=== PATIENT | female | born 1940 | race Caucasian/White ===

== ENCOUNTER 2018-03-19 13:08 | Inpatient (IN) | payer MEDICARE ==
[2018-03-19] MEDS ORDERED: TDAP Vaccine 0.5 mL Syr IM ONE (13:27)
--- NOTE | 2018-03-19 13:39 | ED PDOC ---
Arrival/HPI - General Chief Complaint: Trauma Time Seen by Provider: 03/19/18 13:13 Historian: Patient - History of Present Illness Narrative History of Present Illness (Text): 03/19/18 13:40 A 77 year old female, whose past medical history includes Hypertension, diabetes and A fib (on Coumadin), presents to the emergency department for ? syncopal episode. 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 Patient reports she felt fine before the fall. Notes she fell to the ground, hitting her face. Patient has laceration to lips and right eye swelling. Reports loss of consciousness. Denies any recent falls. Denies any syncopal episodes in the past. Reports normal blood sugar levels. Patient denies any chest pain, dizziness, Shortness of breath, hip pain or any other complaints at this time. PMD: Dr. Hwang Kinder Teacher: Dr. Pandey 03/19/18 15:26 Symptom Onset: Sudden Symptom Course: Unchanged Activities at Onset: Rest Context: Other (Kinder Teacher office) Past Medical History - Provider Review Nursing Documentation Reviewed: Yes - Cardiac Hx Cardiac Arrhythmia: Yes (AFIB) Hx Hypertension: Yes - Psychiatric Hx Depression: No Hx Emotional Abuse: No Hx Physical Abuse: No Hx Substance Use: No - Surgical History Hx Orthopedic Surgery: Yes (KNEE) - Suicidal Assessment Feels Threatened In Home Enviroment: No Family/Social History - Physician Review Nursing Documentation Reviewed: Yes Family/Social History: No Known Family HX Smoking Status: Never Smoked Hx Alcohol Use: No Hx Substance Use: No Allergies/Home Meds Allergies/Adverse Reactions: Allergies Penicillins Allergy (Verified 03/19/18 13:15) RASH Home Medications: Home Meds Medication Instructions Recorded Confirmed Amiodarone Hydrochloride 200 mg PO BID 11/08/13 11/08/13 [Amiodarone HCl] Atenolol 12.5 mg PO DAILY 11/08/13 11/08/13 Cholecalciferol [D-3] 2,000 iu PO DAILY 11/08/13 11/08/13 Glimepiride 6 mg PO QAM 11/08/13 11/08/13 Insulin Lispro Mix 75/25 [humalog 20 units SC QPM 11/08/13 11/08/13 Mix 75/25 75 U/Ml-25 U/Ml 10 Ml] Metformin Hydrochloride [Metformin] 500 mg PO BID 11/08/13 11/08/13 Nifedipine [Nifediac cc] 60 mg PO DAILY 11/08/13 11/08/13 Simvastatin 20 mg PO DAILY 11/08/13 11/08/13 Valsartan [Diovan] 160 mg PO DAILY 11/08/13 11/08/13 Warfarin Sodium 7.5 mg PO DAILY 11/08/13 11/08/13 Review of Systems - Physician Review All systems were reviewed & negative as marked: Yes - Review of Systems Eyes: Other (right eye swelling) ENT: Other (laceration to lip) Respiratory: absent: SOB Cardiovascular: Syncope. absent: Chest Pain Musculoskeletal: absent: Other (hip pain) Neurological: absent: Dizziness Physical Exam Vital Signs Reviewed: Yes Vital Signs Temp Pulse Resp BP Pulse Ox 03/19/18 15:08 86 18 148/64 98 03/19/18 13:12 98.2 F 92 H 18 150/58 L 98 Temperature: Afebrile Blood Pressure: Hypertensive Pulse: Regular Respiratory Rate: Normal Appearance: Positive for: Well-Appearing, Non-Toxic, Comfortable Pain Distress: None Mental Status: Positive for: Alert and Oriented X 3 - Systems Exam Head: Present: Normocephalic, Abrasion (abrasion to top lip), Laceration (1 cm laceration to inside top lip), Other (swelling to right eye) Pupils: Present: PERRL Extroacular Muscles: Present: EOMI Conjunctiva: Present: Normal Mouth: Present: Moist Mucous Membranes Neck: Present: Normal Range of Motion Respiratory/Chest: Present: Clear to Auscultation, Good Air Exchange. No: Respiratory Distress, Accessory Muscle Use Cardiovascular: Present: Irregular Rhythm Abdomen: No: Tenderness, Distention, Peritoneal Signs Back: Present: Normal Inspection Upper Extremity: Present: Normal Inspection. No: Cyanosis, Edema Lower Extremity: Present: Normal Inspection. No: Edema Neurological: Present: GCS=15, CN II-XII Intact, Speech Normal Skin: Present: Warm, Dry, Normal Color. No: Rashes Psychiatric: Present: Alert, Oriented x 3, Normal Insight, Normal Concentration Medical Decision Making ED Course and Treatment: 03/19/18 13:36 Impression: A 77 year old female with laceration to lip and right eye swelling s/p syncopal episode. Plan: -- CT head -- CT maxillofacial -- labs -- chest xray -- EKG -- Tylenol -- Boostrix vaccine -- Reassess and disposition Prior Visits: Notes and results from previous visits were reviewed. Patient last reported to the emergency department on 11/08/13 for evaluation of lower abdominal pain, nausea and vomiting. Progress Notes: 03/19/18 14:11 CT HEAD WITHOUT CONTRAST Creator : Luis Recinos MD FINDINGS: HEMORRHAGE: No intracranial hemorrhage. BRAIN: No mass effect or edema. Chronic microvascular changes are seen. Moderate atrophy VENTRICLES: Unremarkable. No hydrocephalus. CALVARIUM: Unremarkable. PARANASAL SINUSES: Unremarkable as visualized. No significant inflammatory changes. MASTOID AIR CELLS: Unremarkable as visualized. No inflammatory changes. OTHER FINDINGS: There is soft tissue hemorrhage over the right superior orbit. There is no associated fracture. IMPRESSION: No acute intracranial findings 03/19/18 14:15 CT MAXILLOFACIAL BONES WITHOUT CONTRAST Creator : Luis Recinos MD FINDINGS: NASAL BONES: Unremarkable. ORBITS: There is a subcutaneous hemorrhage over the right superior orbit. There is no intraorbital hemorrhage. The globes are intact PARANASAL SINUSES/ MASTOIDS: Clear. MAXILLA: Unremarkable. MANDIBLE/ TEMPOROMANDIBULAR JOINTS: Unremarkable. SKULL BASE: Unremarkable. TEMPORAL BONES: Middle ears and mastoid grossly unremarkable. IMPRESSION: No evidence of fracture 03/19/18 14:28 EKG shows A fib at [address] changes. 03/19/18 14:25 chest xray- Creator : Pranav Cunningham MD FINDINGS: LUNGS: No active pulmonary disease. PLEURA: No significant pleural effusion identified. No pneumothorax apparent. CARDIOVASCULAR: No radiographic findings to suggest acute or significant cardiovascular disease. OSSEOUS STRUCTURES: No significant abnormalities. VISUALIZED UPPER ABDOMEN: Normal. IMPRESSION: No active disease. No significant interval change compared to the prior examination(s). 03/19/18 15:[address] Hwang's office and will be transferred to [facility] for syncope - Lab Interpretations Lab Results: 03/19/18 14:35 03/19/18 14:35 Lab Results 03/19/18 14:35: Sodium 147, Potassium 4.0, Chloride 103, Carbon Dioxide 28, Anion Gap 20, BUN 15, Creatinine 0.8, Est GFR ( Amer) > 60, Est GFR (Non- Af Amer) > 60, Random Glucose 150 H, Calcium 10.4, Total Bilirubin 0.8, AST 27, ALT 30, Alkaline Phosphatase 80, Total Creatine Kinase 127, Troponin I < 0.01, Total Protein 8.7 H, Albumin 5.0 H, Globulin 3.7, Albumin/Globulin Ratio 1.4 03/19/18 14:35: PT 25.0 H, INR 2.16 H, APTT 39.9 H 03/19/18 14:35: WBC 8.4 D, RBC 4.94, Hgb 14.0, Hct 42.8, MCV 86.6, MCH 28.3, MCHC 32.7, RDW 14.6 H, Plt Count 289, MPV 10.8, Gran % 74.7 H, Lymph % (Auto) 19.0 L, [place] % (Auto) 4.7, Eos % (Auto) 1.2 L, Baso % (Auto) 0.4, Gran # 6.26, Lymph # (Auto) 1.6, [place] # (Auto) 0.4, Eos # (Auto) 0.1, Baso # (Auto) 0.03 I have reviewed the lab results: Yes - RAD Interpretation Radiology Orders: 03/19/18 13:17 HEAD W/O CONTRAST [CT] Stat 03/19/18 13:18 CHEST TWO VIEWS (PA/LAT) [RAD] Stat 03/19/18 13:26 MAXILLOFACIAL W/O CONTRAST [CT] Stat - EKG Interpretation Interpreted by ED Physician: Yes Type: 12 lead EKG - Medication Orders Current Medication Orders: Discontinued Medications Acetaminophen (Tylenol 325mg Tab) 650 mg PO STAT STA Stop: 03/19/18 13:28 Last Admin: 03/19/18 14:32 Dose: 650 mg MAR Pain/Vitals Document 03/19/18 14:32 HI (Rec: 03/19/18 14:56 HI [id number]) Pain Reassessment Is This A Pain ReAssessment? No Sleep Is patient sleeping during reassessment? No Presence of Pain Presence of Pain Yes Location Pain Location Body Pace Analyst Tetanus/Reduced Diphtheria/Acell Pertussis (Boostrix Vaccine Inj) 0.5 ml IM .ONCE ONE Stop: 03/19/18 13:28 Last Admin: 03/19/18 14:32 Dose: 0.5 ml Immunization Registry Document 03/19/18 14:32 HI (Rec: 03/19/18 14:55 HI [id number]) Immunization Registry Consent Date 10/08/17 - Scribe Statement The provider has reviewed the documentation as recorded by the Scribe Joya Encios All medical record entries made by the Scribe were at my direction and personally dictated by me. I have reviewed the chart and agree that the record accurately reflects my personal performance of the history, physical exam, medical decision making, and the department course for this patient. I have also personally directed, reviewed, and agree with the discharge instructions and disposition. Disposition/Present on Arrival - Present on Arrival Any Indicators Present on Arrival: No History of DVT/PE: No History of Uncontrolled Diabetes: No Urinary Catheter: No History of Decub. Ulcer: No History Surgical Site Infection Following: None - Disposition Have Diagnosis and Disposition been Completed?: Yes Diagnosis: Syncope, Atrial fibrillation Disposition: HOSPITALIZED Disposition Time: 15:27 Patient Plan: Observation Condition: FAIR Discharge Instructions (ExitCare): Syncope (ED) Referrals: [employer] Brea Guzman, [Non-Staff] - Follow up with primary Forms: Librato (Ukrainian)
--- NOTE | 2018-03-19 14:10 | CT ---
PROCEDURE: CT HEAD WITHOUT CONTRAST. HISTORY: head trauma,on coumadin COMPARISON: None available. TECHNIQUE: Axial computed tomography images were obtained through the head/brain without intravenous contrast. Radiation dose: Total exam DLP = 875 mGy-cm. This CT exam was performed using one or more of the following dose reduction techniques: Automated exposure control, adjustment of the mA and/or kV according to patient size, and/or use of iterative reconstruction technique. FINDINGS: HEMORRHAGE: No intracranial hemorrhage. BRAIN: No mass effect or edema. Chronic microvascular changes are seen. Moderate atrophy VENTRICLES: Unremarkable. No hydrocephalus. CALVARIUM: Unremarkable. PARANASAL SINUSES: Unremarkable as visualized. No significant inflammatory changes. MASTOID AIR CELLS: Unremarkable as visualized. No inflammatory changes. OTHER FINDINGS: There is soft tissue hemorrhage over the right superior orbit. There is no associated fracture. IMPRESSION: No acute intracranial findings
--- NOTE | 2018-03-19 14:13 | CT ---
PROCEDURE: CT MAXILLOFACIAL BONES WITHOUT CONTRAST HISTORY: swelling to R eye after fall, on coumadin COMPARISON: None TECHNIQUE: Contiguous axial CT images of the maxillofacial bones were obtained. Coronal and sagittal reformats were generated. Radiation dose: Total exam DLP = 687 mGy-cm. This CT exam was performed using one or more of the following dose reduction techniques: Automated exposure control, adjustment of the mA and/or kV according to patient size, and/or use of iterative reconstruction technique. FINDINGS: NASAL BONES: Unremarkable. ORBITS: There is a subcutaneous hemorrhage over the right superior orbit. There is no intraorbital hemorrhage. The globes are intact PARANASAL SINUSES/ MASTOIDS: Clear. MAXILLA: Unremarkable. MANDIBLE/ TEMPOROMANDIBULAR JOINTS: Unremarkable. SKULL BASE: Unremarkable. TEMPORAL BONES: Middle ears and mastoid grossly unremarkable. OTHER FINDINGS: None. IMPRESSION: No evidence of fracture
--- NOTE | 2018-03-19 14:21 | RAD ---
HISTORY: fall, on coumadin, ?syncope COMPARISON: 01/10/2015. TECHNIQUE: Chest PA and lateral FINDINGS: LUNGS: No active pulmonary disease. PLEURA: No significant pleural effusion identified. No pneumothorax apparent. CARDIOVASCULAR: No radiographic findings to suggest acute or significant cardiovascular disease. OSSEOUS STRUCTURES: No significant abnormalities. VISUALIZED UPPER ABDOMEN: Normal. OTHER FINDINGS: None. IMPRESSION: No active disease. No significant interval change compared to the prior examination(s).
[2018-03-19 14:44] LABS: BASO # 0.03 K/mm3 (0.0-2.0); BASO % 0.4 % (0.0-3.0); EOS # 0.1 (0.0-0.7); EOS % 1.2 % (1.5-5.0); GRAN # 6.26 (1.4-6.5); GRAN % 74.7 % (50.0-68.0); LYMPH # 1.6 (1.2-3.4); MEAN CELL VOLUME 86.6 fl (80.0-105.0); MEAN CORPUSCULAR HEMOGLOBIN 28.3 pg (25.0-35.0); MEAN CORPUSCULAR HGB CONC 32.7 g/dl (31.0-37.0); MEAN PLATELET VOLUME 10.8 fl (7.0-11.0); MONO # 0.4 (0.1-0.6); MONO % 4.7 % (1.0-6.0); RBC 4.94 10^6/uL (3.5-6.1); RED CELL DISTRIBUTION WIDTH 14.6 % (11.5-14.5); WHITE BLOOD COUNT 8.4 10^3/ul (4.5-11.0)
[2018-03-19 14:57] LABS: INR 2.16 (0.93-1.08); PARTIAL THROMBOPLASTIN TIME 39.9 Seconds (25.1-36.5)
[2018-03-19 15:05] LABS: GFR AFRICAN-AMERICAN > 60; GFR NON-AFRICAN AMERICAN > 60
[2018-03-19 15:08] LABS: ALB/GLOB RATIO 1.4 (1.1-1.8); ALT/SGPT 30 U/L (7-56); AST/SGOT 27 U/L (14-36); BLOOD UREA NITROGEN 15 mg/dL (7-21); CALCIUM 10.4 mg/dL (8.4-10.5)
[2018-03-19 15:16] LABS: TROPONIN I < 0.01 ng/mL
--- NOTE | 2018-03-19 15:44 | CARD ---
APPROVED REPORT EKG Measurement Heart [id number] <Conclusion> Atrial fibrillation Nonspecific T wave abnormality
[2018-03-19] MEDS ORDERED: Lidocaine 1% Inj (20ml) IJ STA (16:54)
[2018-03-19 17:06] LABS: HDL CHOLESTEROL 54 mg/dL (29-60)
--- NOTE | 2018-03-19 17:12 | CP.PCM.HP ---
<SujeySabrina - Last Filed: 03/19/18 16:51> History of Present Illness - History of Present Illness History of Present Illness: Sabrina Rm, PGy1, H&P for Dr Suellen Morrissey: CC: mechanical fall 77 year old female, with PMH HTN, DM, afib (on Coumadin), presents s/p mechanical fall at Cardiology office. Pt states that she was in her usual state of health this morning. She went to see her Mosaic Layer (Dr Pandey). At the end of visit, she may have tripped on the floor, she fell down and hit her right head. Denies LOC, dizziness, cp, sob, palpitations, irregular heartbeat, seizure like activity, urinary/bowel incontinence, tongue biting, focal deficits , blurry vision. Pt reports that she had mild confusion lasting few seconds from the fall. However, she was later alert, oriented x3. Denies hitting her hips or pain elsewhere in body. Further denies cough, abdominal pain, leg swelling, urinary symptoms. Pt reports that her left knee has been bothering her for past few weeks, she had a right knee replacement few years ago. States that she likely would have to get left knee replaced as well. 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 In ED, INR 2.16, trop neg x1. EKG shows afib, no ST/T wave abnormalities. CT head negative for ICH, maxillofacial CT neg for acute fracture. 12 point ROS obtained and negative, except as per HPI. PMD: Dr. Hwang Mosaic Layer: Dr. Pandey PMH: HTN, DM, Afib (on coumadin) PSH: right knee replacement (2007) All: PCN - rash, itching. Vitamin B complex - hypotension? FH: HTN, DM SH: lives with , has 3 daughters that live nearby. Denies etoh, smoking, illicit drug use. Present on Admission - Present on Admission Any Indicators Present on Admission: No History of DVT/PE: No History of Uncontrolled Diabetes: No Urinary Catheter: No Decubitus Ulcer Present: No Review of Systems - Review of Systems All systems: reviewed and no additional remarkable complaints except Review of Systems: as per HPI Past Patient History - Past Social History Smoking Status: Never Smoked - CARDIAC Hx Cardia Arrhythmia: Yes (AFIB) Hx Hypertension: Yes - PSYCHIATRIC Hx Depression: No Hx Emotional Abuse: No Hx Physical Abuse: No Hx Substance Use: No - SURGICAL HISTORY Hx Orthopedic Surgery: Yes (KNEE) Meds Allergies/Adverse Reactions: Allergies Allergy/AdvReac Type Severity Reaction Status Date / Time Penicillins Allergy RASH Verified 03/19/18 13:15 Physical Exam - Constitutional Appears: No Acute Distress - Head Exam Head Exam: NORMOCEPHALIC Additional comments: + right eye swelling noted, but eye movements intact - Eye Exam Eye Exam: EOMI, PERRL. absent: Conjunctival injection, Nystagmus, Scleral icterus Pupil Exam: NORMAL ACCOMODATION, PERRL. absent: Fixed, Irregular, Unequal - ENT Exam ENT Exam: Mucous Membranes Moist - Neck Exam Neck exam: Positive for: Full Rom - Respiratory Exam Respiratory Exam: Clear to Auscultation Bilateral, NORMAL BREATHING PATTERN. absent: Accessory Muscle Use, Rhonchi, Wheezes, Stridor - Cardiovascular Exam Cardiovascular Exam: Irregular Rhythm - GI/Abdominal Exam GI & Abdominal Exam: Normal Bowel Sounds, Soft. absent: Distended, Guarding, Mass, Organomegaly, Rebound, Rigid, Tenderness - Extremities Exam Extremities exam: Positive for: normal inspection. Negative for: calf tenderness, pedal edema - Back Exam Back exam: NORMAL INSPECTION - Neurological Exam Neurological exam: Alert, Oriented x3 - Psychiatric Exam Psychiatric exam: Normal Affect, Normal Mood - Skin Skin Exam: Dry, Normal Color, Warm Results - Vital Signs Recent Vital Signs: Last Vital Signs Temp 98.2 F 03/19/18 13:12 Pulse 86 03/19/18 15:08 Resp 18 03/19/18 15:08 BP 148/64 03/19/18 15:08 Pulse Ox 98 03/19/18 15:08 - Labs Result Diagrams: 03/19/18 14:35 03/19/18 14:35 Assessment & Plan - Assessment and Plan (Free Text) Assessment: 77 year old female with PMH afib on Coumadin, DM, HTN, osteoarthritis, presents s/p mechanical fall, admitted for concern for syncope: Fall: likely mechanical vs less likely syncope 2/2 arrhythmias vs orthostatic vs heart failure vs carotid stenosis vs seizure/cva vs infectious etiology - tele monitor - Orthostatic VS - Carotid doppler - Echo - Neuro checks - Fall precautions - CT head neg for acute bleed/changes and maxillofacial CT negative for acute fracture - CXR neg for infiltrate or cardiomegaly - EKG shows A fib at [address] changes. - F/u UA - Cardio consulted. F/u recs HX of Afib: - EKG shows A fib at [address] changes. - C/w home atenolol and coumadin - Daily INR. Maintain INR 2-3. Hx of HTN: - C/w home med Losartan, nifedipine. Holding parameters in place. - Monitor Hx of DM: - ISS - BG ACHS PPX: pepcid, Scds Diet: carb consistent (heart healthy diet) Case seen and discussed with Dr Patric Morrissey. Sabrina Rm, PGY1 - Date & Time Date: 03/19/18 Time: 17:13 <Suellen Morrissey - Last Filed: 03/21/18 16:41> Results - Vital Signs Recent Vital Signs: Last Vital Signs Temp 98.5 F 03/20/18 18:00 Pulse 90 03/20/18 18:00 Resp 20 03/20/18 18:00 BP 139/81 03/20/18 18:00 Pulse Ox 98 03/20/18 06:00 - Labs Result Diagrams: 03/20/18 05:30 03/20/18 05:30 Labs: Laboratory Results - last 24 hr 03/20/18 16:10 POC Glucose (mg/dL) 130 H Attending/Attestation - Attestation I have personally seen and examined this patient.: Yes I have fully participated in the care of the patient.: Yes I have reviewed all pertinent clinical information: Yes Notes (Text): I have seen and examined the patient at bedside. Agree with the above note. Will order workup for syncope.
[2018-03-19 17:17] LABS: LDL CHOLESTEROL 97 mg/dL (0-129)
--- NOTE | 2018-03-19 17:31 | PCM.PROC ---
Procedures Attestation:: I certify that I have explained the specified Operation(s) or Procedure(s), risks, benefits and reasonable alternatives to the Patient and/or other person responsible. The opportunity was given to ask questions and all questions answered - Laceration lidocaine 1% simple, single layer linear right lip 5-0 vicryl local infiltration simple, interrupted Site: lip (upper; inside of mouth) Side (if applicable): right Size (cm): 2 Description: linear Depth: simple, single layer Anesthesia used: lidocaine 1% Anesthesia technique: local infiltration Amount (mLs): 1 Pre-repair: irrigated extensively Skin layer closed with: vicryl Size: 5-0 Number of sutures: 3 Technique: simple, interrupted
[2018-03-19] MEDS: Insulin Reg-MEDIUM-Coverage SC SCH (21:34)
[2018-03-19 22:02] VITALS: BMI 27.4
[2018-03-19 22:50] LABS: PH,URINE 6.5 (4.7-8.0); URINE BILIRUBIN NEGATIVE (NEGATIVE); URINE BLOOD SMALL (NEGATIVE); URINE GLUCOSE (UA) 500 mg/dL (NEGATIVE); URINE LEUKOCYTE ESTERASE MODERATE Leu/uL (NEGATIVE); URINE PROTEIN NEGATIVE mg/dL (<30 mg/dL); URINE UROBILINOGEN 0.2 E.U./dL (<1 E.U./dL)
[2018-03-19 22:54] LABS: URINE APPEARANCE SL CLOUDY (CLEAR); URINE COLOR YELLOW (YELLOW)
[2018-03-19 23:07] LABS: URINE BACTERIA MANY (NEG); URINE EPITHELIAL CELLS 0 - 2 /hpf (0-5); URINE RBC 0 - 2 /hpf (0-2); URINE WBC 20 - 25 /hpf (0-6)
[2018-03-20 06:07] VITALS: O2SAT 98
[2018-03-20 06:37] LABS: BASO # 0.03 K/mm3 (0.0-2.0); BASO % 0.4 % (0.0-3.0); EOS # 0.1 (0.0-0.7); EOS % 1.9 % (1.5-5.0); GRAN # 4.51 (1.4-6.5); GRAN % 61.7 % (50.0-68.0); LYMPH # 1.9 (1.2-3.4); LYMPH % 25.3 % (22.0-35.0); MEAN CELL VOLUME 85.9 fl (80.0-105.0); MEAN CORPUSCULAR HEMOGLOBIN 27.6 pg (25.0-35.0); MEAN CORPUSCULAR HGB CONC 32.2 g/dl (31.0-37.0); MONO # 0.8 (0.1-0.6); MONO % 10.7 % (1.0-6.0); RBC 4.27 10^6/uL (3.5-6.1); RED CELL DISTRIBUTION WIDTH 14.8 % (11.5-14.5); WHITE BLOOD COUNT 7.3 10^3/ul (4.5-11.0)
[2018-03-20 06:49] LABS: HEMOGLOBIN 11.8 g/dL (12.0-16.0)
[2018-03-20 06:53] LABS: INR 2.62 (0.93-1.08); PARTIAL THROMBOPLASTIN TIME 36.6 Seconds (25.1-36.5); PROTHROMBIN TIME 30.7 SECONDS (9.4-12.5)
--- NOTE | 2018-03-20 06:59 | CP.PCM.PN ---
<DaleChad - Last Filed: 03/20/18 13:31> Subjective - Date & Time of Evaluation Date of Evaluation: 03/20/18 Time of Evaluation: 07:35 - Subjective Subjective: Medicine Note for Dr. Morrissey Patient seen and examined at bedside. No acute event overnight. Patient complains of mild pain over R orbit and upper lip from fall. Patient tolerating diet. Neurology to see patient today. Denies lightheadedness/dizziness, vision changes, syncope, vertigo, chest pain, palpitations, dysuria. Objective - Vital Signs/Intake and Output Vital Signs (last 24 hours): Temp Pulse Resp BP Pulse Ox 97.4 F L 86 20 139/79 98 03/20/18 06:00 03/20/18 06:00 03/20/18 06:00 03/20/18 06:00 03/20/18 06:00 Intake and Output: 03/19/18 03/20/18 18:59 06:59 Intake Total 540 Output Total 500 Balance 40 - Medications Medications: Current Medications Atenolol (Tenormin) 50 mg PO DAILY [facility] Atenolol (Tenormin) 37.5 mg PO 2000 [facility] Ciprofloxacin (Cipro) 500 mg PO Q12 [facility] Famotidine (Pepcid) 20 mg PO 1000,2200 [facility] Last Admin: 03/19/18 21:34 Dose: Not Given Insulin Human Regular (Humulin R Med) 0 units SC ACHS [facility] PRN Reason: Protocol Last Admin: 03/19/18 21:34 Dose: Not Given Losartan Potassium (Cozaar) 100 mg PO DAILY [facility] Nifedipine (Procardia Xl) 60 mg PO DAILY [facility] Warfarin Sodium (Coumadin) 5 mg PO 1800 [facility] PRN Reason: Protocol - Labs Labs: 03/20/18 05:30 PT 30.7 SECONDS (9.4-12.5) H 03/20/18 05:30 INR 2.62 (0.93-1.08) H 03/20/18 05:30 APTT 36.6 Seconds (25.1-36.5) H 03/20/18 05:30 - Constitutional Appears: No Acute Distress - Head Exam Head Exam: NORMOCEPHALIC Additional comments: edema and ecchymosis over R orbit upper lip edema - Eye Exam Eye Exam: EOMI Pupil Exam: PERRL - ENT Exam ENT Exam: Mucous Membranes Moist - Neck Exam Neck Exam: Normal Inspection - Respiratory Exam Respiratory Exam: Clear to Ausculation Bilateral, NORMAL BREATHING PATTERN - Cardiovascular Exam Cardiovascular Exam: Irregular Rhythm (regular rate), +S1, +S2 - GI/Abdominal Exam GI & Abdominal Exam: Soft, Normal Bowel Sounds. absent: Tenderness - Extremities Exam Extremities Exam: Normal Capillary Refill. absent: Calf Tenderness - Neurological Exam Neurological Exam: Alert, Awake, CN II-XII Intact, Oriented x3 - Psychiatric Exam Psychiatric exam: Normal Affect, Normal Mood - Skin Skin Exam: Dry, Intact, Warm Assessment and Plan - Assessment and Plan (Free Text) Assessment: 77 F with PMH afib on Coumadin, DM, HTN, osteoarthritis, presents s/p mechanical fall, admitted for possible syncope. 1. s/p Fall likely mechanical vs less likely syncope Orthostatic VS negative f/u Carotid doppler report Neuro checks Fall precautions CT head negative maxillofacial CT negative for acute fracture CXR negative EKG shows A fib at 89 BPM Cardio consulted, help appreciated Neuro consulted, help appreciated 2. Atrial Fibrillation EKG shows A fib at 89 BPM Continue home meds atenolol and coumadin INR 2.6 3. HTN Contine home med Losartan and nifedipine Monitor BP Orthostats negative 4. DM ISS Accuchecks ACHS 5. Prophylactic Measures pepcid Scds On Coumadin for afib Mod carb consistent, heart healthy diet Case discussed with Dr Yuni Hunter PGY1 <Suellen Morrissey - Last Filed: 03/21/18 15:20> Objective - Vital Signs/Intake and Output Vital Signs (last 24 hours): Temp Pulse Resp BP Pulse Ox 98.5 F 90 20 139/81 98 03/20/18 18:00 03/20/18 18:00 03/20/18 18:00 03/20/18 18:00 03/20/18 06:00 - Labs Labs: 03/20/18 05:30 03/20/18 05:30 PT 30.7 SECONDS (9.4-12.5) H 03/20/18 05:30 INR 2.62 (0.93-1.08) H 03/20/18 05:30 APTT 36.6 Seconds (25.1-36.5) H 03/20/18 05:30 Attending/Attestation - Attestation I have personally seen and examined this patient.: Yes I have fully participated in the care of the patient.: Yes I have reviewed all pertinent clinical information, including history, physical exam and plan: Yes Notes (Text): I have seen and examined the patient at bedside. Agree with the above note. Neurology consult pending.
[2018-03-20 07:12] LABS: ALB/GLOB RATIO 1.2 (1.1-1.8); ALBUMIN 3.7 g/dL (3.0-4.8); ALT/SGPT 23 U/L (7-56); AST/SGOT 20 U/L (14-36); BLOOD UREA NITROGEN 14 mg/dL (7-21); CALCIUM 9.3 mg/dL (8.4-10.5); GFR AFRICAN-AMERICAN > 60; GFR NON-AFRICAN AMERICAN > 60
[2018-03-20] MEDS: Insulin Reg-MEDIUM-Coverage SC SCH ×3 (07:38→16:30)
[2018-03-20] MEDS ORDERED: NIFEdipine 60 mg ER Tab PO SCH (10:00)
--- NOTE | 2018-03-20 15:56 | US ---
PROCEDURE: Bilateral carotid artery duplex ultrasound HISTORY: Carotid stenosis PHYSICIAN(S): Abram Joyner MD. TECHNIQUE: Duplex sonography and color-flow Doppler were used to evaluate the carotid bifurcations and limited segments of the vertebral arteries bilaterally. FINDINGS: There is mild smooth focal heterogeneous echogenic plaque noted at the carotid bifurcations bilaterally. The peak systolic velocity in the proximal right internal carotid artery is 85 cm/sec. This corresponds to a 20 to 39% proximal right ICA stenosis. Normal systolic velocities are noted in the proximal right external carotid artery. There is antegrade flow in the right vertebral artery. The peak systolic velocity in the proximal left internal carotid artery is 70 cm/sec. This corresponds to a 20 to 39% proximal left ICA stenosis. Normal systolic velocities are noted in the proximal left external carotid artery. There is antegrade flow in the left vertebral artery. IMPRESSION: 1. Bilateral 20-39% proximal ICA stenoses. 2. Antegrade flow in both vertebral arteries.
[2018-03-20 18:29] VITALS: BP 139/81; PULSE 90; RESP 20; TEMP 98.5
--- NOTE | 2018-03-20 18:29 | CON ---
DATE: 03/20/2018 REASON FOR CONSULTATION: Fall with head trauma. HISTORY OF PRESENT ILLNESS: This is a 77-year-old woman well known to me who came to our office yesterday for an INR, while walking to the room in the [place], she fell, hitting her face and head on the floor. She did not recall what happened, but in retrospect believes that she tripped over loose sandals that she was wearing. She had a purse and other things in her arms which prevented her from protecting her head during the fall. She was bleeding from her lip and had an ecchymosis around her right eye. She was disoriented with evidence of concussion. She was transferred to the emergency room and subsequently admitted to telemetry. This morning, her mental status has returned to normal and she feels well. There is no chest pain, shortness of breath, orthopnea, PND, prior syncope, palpitation, edema, claudication. Prior to the fall, she was feeling well. There is no fever, chills, cough, sputum production, or hemoptysis. There is no abdominal pain, nausea, vomiting, diarrhea, constipation, or melena. PAST MEDICAL HISTORY: Notable for chronic AFib. She is on Coumadin. There is a history of hypertension and diabetes, but no rheumatic fever, myocardial infarction, stroke, TIA, or gout. MEDICATIONS: At the time of admission, include Xanax, Pravachol, losartan, atenolol, vitamin D, glimepiride, insulin, metformin, nifedipine, and warfarin. ALLERGIES: SHE NOTES AN ALLERGY TO PENICILLIN. FAMILY HISTORY: Noncontributory. SOCIAL HISTORY: She is a retired nurse. She lives at home with her . She is ambulatory. She does not smoke cigarettes. She does not drink alcohol. REVIEW OF SYSTEMS: A 10-point review of systems is otherwise unremarkable except as noted above. PHYSICAL EXAMINATION: GENERAL: She is a well-developed woman, sitting on her bed on telemetry, in no acute distress. VITAL SIGNS: Notable for atrial fibrillation with moderate ventricular rates, afebrile, blood pressure 139/79, respirations are 18-20, O2 sat 98%-100% on room air. Her orthostatic vital signs were unremarkable. HEENT: Reveals facial trauma on the right side with swelling, ecchymosis. Her lip has been sutured on the inside. Mucous membranes are moist. Conjunctivae are pink. NECK: Supple. LUNGS: Lung [place] are clear throughout. HEART: Reveals an irregular rhythm. Normal first and second heart sounds. ABDOMEN: Soft. Bowel sounds are present. No mass, organomegaly, tenderness, rebound, or guarding. NEUROLOGIC: She is awake, alert, and oriented. She knew me. She knew the exact date and place. Yesterday, after the fall, she was disoriented as to place and time. PSYCHIATRIC: Normal. SKIN: Warm and dry. No rash or cellulitis. Ecchymosis around the right eye noted. LABORATORY AND IMAGING: CT scan of the head revealed no acute intracranial findings. A chest x-ray reveals no active disease. EKG demonstrates atrial fibrillation, nonspecific ST wave changes, no change from her prior EKG. A maxillofacial CT without contrast reveals no evidence of fracture. White count normal, platelet count normal, hemoglobin of 11.8, hematocrit 36.7. PT 30, INR 2.62, PTT 36.6. Electrolytes, BUN, creatine, blood sugar, calcium, LFTs, CK, troponin were all unremarkable. Total cholesterol 191, triglycerides 164, LDL 97, HDL 54, TSH is normal. Urinalysis is noted. 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 Her neurologic status has normalized this morning. Her lip was sutured. She got a tetanus injection. I will resume her usual medications. I will hold warfarin today. An echocardiogram is ordered. We will check her postural vital signs. A carotid ultrasound is ordered. She should have a neuro. consultation. She can ambulate. I will plan discharge her later today with outpatient followup. We will repeat her next INR in 2 weeks. She will continue her usual warfarin dosage starting tomorrow. She will keep us informed of any symptoms. She will avoid wearing loose sandals in the future. Bay Pandey MD JOSE
--- NOTE | 2018-03-20 19:11 | CP.PCM.DIS ---
<Chad Hunter - Last Filed: 03/21/18 13:27> Provider - Provider Date of Admission: 03/19/18 15:27 Attending physician: Suellen Morrissey MD Primary care physician: Hi Hwang MD Consults: Cardio: Katherin Neuro: Rebekah Time Spent in preparation of Discharge (in minutes): 40 Diagnosis - Discharge Diagnosis (1) Fall Status: Acute (2) UTI (urinary tract infection) Status: Acute (3) Atrial fibrillation Status: Acute Hospital Course - Lab Results Lab Results: Most Recent Lab Values WBC 7.3 10^3/ul (4.5-11.0) 03/20/18 05:30 RBC 4.27 10^6/uL (3.5-6.1) 03/20/18 05:30 Hgb 11.8 g/dL (12.0-16.0) L D 03/20/18 05:30 Hct 36.7 % (36.0-48.0) 03/20/18 05:30 MCV 85.9 fl (80.0-105.0) 03/20/18 05:30 MCH 27.6 pg (25.0-35.0) 03/20/18 05:30 MCHC 32.2 g/dl (31.0-37.0) 03/20/18 05:30 RDW 14.8 % (11.5-14.5) H 03/20/18 05:30 Plt Count 278 10^3/uL (120.0-450.0) 03/20/18 05:30 MPV 11.0 fl (7.0-11.0) 03/20/18 05:30 Gran % 61.7 % (50.0-68.0) 03/20/18 05:30 Lymph % (Auto) 25.3 % (22.0-35.0) 03/20/18 05:30 [place] % (Auto) 10.7 % (1.0-6.0) H 03/20/18 05:30 Eos % (Auto) 1.9 % (1.5-5.0) 03/20/18 05:30 Baso % (Auto) 0.4 % (0.0-3.0) 03/20/18 05:30 Gran # 4.51 (1.4-6.5) 03/20/18 05:30 Lymph # (Auto) 1.9 (1.2-3.4) 03/20/18 05:30 [place] # (Auto) 0.8 (0.1-0.6) H 03/20/18 05:30 Eos # (Auto) 0.1 (0.0-0.7) 03/20/18 05:30 Baso # (Auto) 0.03 K/mm3 (0.0-2.0) 03/20/18 05:30 PT 30.7 SECONDS (9.4-12.5) H 03/20/18 05:30 INR 2.62 (0.93-1.08) H 03/20/18 05:30 APTT 36.6 Seconds (25.1-36.5) H 03/20/18 05:30 Sodium 144 mmol/L (132-148) 03/20/18 05:30 Potassium 3.6 mmol/L (3.6-5.0) 03/20/18 05:30 Chloride 104 mmol/L (98-107) 03/20/18 05:30 Carbon Dioxide 29 mmol/L (21-33) 03/20/18 05:30 Anion Gap 16 (10-20) 03/20/18 05:30 BUN 14 mg/dL (7-21) 03/20/18 05:30 Creatinine 0.6 mg/dl (0.7-1.2) L 03/20/18 05:30 Est GFR ( Amer) > 60 03/20/18 05:30 Est GFR (Non-Af Amer) > 60 03/20/18 05:30 POC Glucose (mg/dL) 159 mg/dL (65-110) H 03/20/18 11:33 Random Glucose 143 mg/dL (70-110) H 03/20/18 05:30 Hemoglobin A1c 6.5 % (4.2-6.5) 03/20/18 09:30 Calcium 9.3 mg/dL (8.4-10.5) 03/20/18 05:30 Phosphorus 3.5 mg/dL (2.5-4.5) 03/20/18 05:30 Magnesium 1.7 mg/dL (1.7-2.2) 03/20/18 05:30 Total Bilirubin 0.9 mg/dL (0.2-1.3) 03/20/18 05:30 AST 20 U/L (14-36) 03/20/18 05:30 ALT 23 U/L (7-56) 03/20/18 05:30 Alkaline Phosphatase 65 U/L (38-126) 03/20/18 05:30 Total Creatine Kinase 127 U/L (35-230) 03/19/18 14:35 Troponin I < 0.01 ng/mL 03/19/18 14:35 Total Protein 6.8 g/dL (5.8-8.3) 03/20/18 05:30 Albumin 3.7 g/dL (3.0-4.8) 03/20/18 05:30 Globulin 3.1 gm/dL 03/20/18 05:30 Albumin/Globulin Ratio 1.2 (1.1-1.8) 03/20/18 05:30 Triglycerides 164 mg/dL (35-160) H 03/19/18 14:35 Cholesterol 191 mg/dL (130-200) 03/19/18 14:35 LDL Cholesterol Direct 97 mg/dL (0-129) 03/19/18 14:35 HDL Cholesterol 54 mg/dL (29-60) 03/19/18 14:35 TSH 3rd Generation 2.97 mIU/mL (0.46-4.68) 03/19/18 14:35 Urine Color Yellow (YELLOW) 03/19/18 22:45 Urine Appearance Sl cloudy (CLEAR) 03/19/18 22:45 Urine pH 6.5 (4.7-8.0) 03/19/18 22:45 Ur Specific [place] 1.010 (1.005-1.035) 03/19/18 22:45 Urine Protein Negative mg/dL (<30 mg/dL) 03/19/18 22:45 Urine Glucose (UA) 500 mg/dL (NEGATIVE) H 03/19/18 22:45 Urine Ketones Negative mg/dL (NEGATIVE) 03/19/18 22:45 Urine Blood Small (NEGATIVE) H 03/19/18 22:45 Urine Nitrate Positive (NEGATIVE) H 03/19/18 22:45 Urine Bilirubin Negative (NEGATIVE) 03/19/18 22:45 Urine Urobilinogen 0.2 E.U./dL (<1 E.U./dL) 03/19/18 22:45 Ur Leukocyte Esterase Moderate [place]/uL (NEGATIVE) H 03/19/18 22:45 Urine RBC 0 - 2 /hpf (0-2) 03/19/18 22:45 Urine WBC 20 - 25 /hpf (0-6) 03/19/18 22:45 Ur Epithelial Cells 0 - 2 /hpf (0-5) 03/19/18 22:45 Urine Bacteria Many (NEG) 03/19/18 22:45 - Hospital Course Hospital Course: HPI: 77 F with PMH HTN, DM, afib (on Coumadin), presents s/p mechanical fall at Cardiology office. Pt states that she was in her usual state of health this morning. She went to see her Manufacturing Clerk (Dr Pandey). At the end of visit, she may have tripped on the floor, she fell down and hit her right head. Denies LOC , dizziness, cp, sob, palpitations, irregular heartbeat, seizure like activity, urinary/bowel incontinence, tongue biting, focal deficits, blurry vision. Pt reports that she had mild confusion lasting few seconds from the fall. However, she was later alert, oriented x3. Denies hitting her hips or pain elsewhere in body. Further denies cough, abdominal pain, leg swelling, urinary symptoms. Pt reports that her left knee has been bothering her for past few weeks, she had a right knee replacement few years ago. States that she likely would have to get left knee replaced as well. 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 Hospital course: In ED, INR 2.16, troponin was negative. EKG showed afib, no ST/ T wave abnormalities. CT head negative, and maxillofacial CT was negative for acute fracture. Three suture were placed in upper lip to close laceration. She was found to have ecchymosis of R orbit. No evidence of bleeding. Patient was admitted to telemetry. Cardio and Neuro were consulted. Carotid US revealed bilateral stenosis 20-39%. Echo demonstrated normal EF at 58%. She was cleared by Cardio and Neuro. The fall was ruled as purely mechanical. UA had shown uncomplicated UTI so Cipro was provided on discharge. Patient was feeling fine and work up was negative for any syncopal, neurogenic, or cardiogenic cause of fall so she was deemed stable for discharge. Patient was instructed to follow up with PMD and Cardio as outpatient. She was to resume home meds as prescribed. (this is a summary of the hospital course. Please refer to EMR for more details. ) Discharge Exam - Head Exam Head Exam: NORMOCEPHALIC - Eye Exam Eye Exam: EOMI Pupil Exam: PERRL - ENT Exam ENT Exam: Mucous Membranes Moist - Neck Exam Neck exam: Normal Inspection - Respiratory Exam Respiratory Exam: Clear to PA & Lateral, NORMAL BREATHING PATTERN - Cardiovascular Exam Cardiovascular Exam: Irregular Rhythm (regular rate), +S1, +S2 - GI/Abdominal Exam GI & Abdominal Exam: Normal Bowel Sounds, Soft. absent: Tenderness - Extremities Exam Extremities exam: normal capillary refill, pedal pulses present - Neurological Exam Neurological exam: Alert, CN II-XII Intact, Oriented x3 - Psychiatric Exam Psychiatric exam: Normal Affect, Normal Mood - Skin Skin Exam: Dry, Intact, Warm Discharge Plan - Discharge Medications Prescriptions: Ciprofloxacin/Ciprofloxa HCl [Ciprofloxacin ER 500 mg Tablet] 500 mg PO DAILY # 3 tbmp.24hr - Follow Up Plan Condition: GOOD Disposition: HOME/ ROUTINE Instructions: Syncope (Fainting), Preventing Falls, Bleeding Precautions, Urinary Tract Infection in Women (DC), Urinary Tract Infection in Women (GEN), Syncope (DC), Syncope (GEN), Dysuria (GEN) Additional Instructions: 1) Follow up with Dr. Pandey and PMD as directed. 2) Please take any medications as directed, unless otherwise indicated 3) Please resume home medications as directed by candy cooker helper and neurologist, unless otherwise indicated. 4) Please return to ED if you develop any new or worsening symptoms. Referrals: Hi Hwang MD [Primary Care Provider] - <Suellen Morrissey - Last Filed: 03/21/18 15:23> Provider - Provider Date of Admission: 03/19/18 15:27 Attending physician: Suellen Morrissey MD Primary care physician: Hi Hwang MD Hospital Course - Lab Results Lab Results: Most Recent Lab Values WBC 7.3 10^3/ul (4.5-11.0) 03/20/18 05:30 RBC 4.27 10^6/uL (3.5-6.1) 03/20/18 05:30 Hgb 11.8 g/dL (12.0-16.0) L D 03/20/18 05:30 Hct 36.7 % (36.0-48.0) 03/20/18 05:30 MCV 85.9 fl (80.0-105.0) 03/20/18 05:30 MCH 27.6 pg (25.0-35.0) 03/20/18 05:30 MCHC 32.2 g/dl (31.0-37.0) 03/20/18 05:30 RDW 14.8 % (11.5-14.5) H 03/20/18 05:30 Plt Count 278 10^3/uL (120.0-450.0) 03/20/18 05:30 MPV 11.0 fl (7.0-11.0) 03/20/18 05:30 Gran % 61.7 % (50.0-68.0) 03/20/18 05:30 Lymph % (Auto) 25.3 % (22.0-35.0) 03/20/18 05:30 [place] % (Auto) 10.7 % (1.0-6.0) H 03/20/18 05:30 Eos % (Auto) 1.9 % (1.5-5.0) 03/20/18 05:30 Baso % (Auto) 0.4 % (0.0-3.0) 03/20/18 05:30 Gran # 4.51 (1.4-6.5) 03/20/18 05:30 Lymph # (Auto) 1.9 (1.2-3.4) 03/20/18 05:30 [place] # (Auto) 0.8 (0.1-0.6) H 03/20/18 05:30 Eos # (Auto) 0.1 (0.0-0.7) 03/20/18 05:30 Baso # (Auto) 0.03 K/mm3 (0.0-2.0) 03/20/18 05:30 PT 30.7 SECONDS (9.4-12.5) H 03/20/18 05:30 INR 2.62 (0.93-1.08) H 03/20/18 05:30 APTT 36.6 Seconds (25.1-36.5) H 03/20/18 05:30 Sodium 144 mmol/L (132-148) 03/20/18 05:30 Potassium 3.6 mmol/L (3.6-5.0) 03/20/18 05:30 Chloride 104 mmol/L (98-107) 03/20/18 05:30 Carbon Dioxide 29 mmol/L (21-33) 03/20/18 05:30 Anion Gap 16 (10-20) 03/20/18 05:30 BUN 14 mg/dL (7-21) 03/20/18 05:30 Creatinine 0.6 mg/dl (0.7-1.2) L 03/20/18 05:30 Est GFR ( Amer) > 60 03/20/18 05:30 Est GFR (Non-Af Amer) > 60 03/20/18 05:30 POC Glucose (mg/dL) 130 mg/dL (65-110) H 03/20/18 16:10 Random Glucose 143 mg/dL (70-110) H 03/20/18 05:30 Hemoglobin A1c 6.5 % (4.2-6.5) 03/20/18 09:30 Calcium 9.3 mg/dL (8.4-10.5) 03/20/18 05:30 Phosphorus 3.5 mg/dL (2.5-4.5) 03/20/18 05:30 Magnesium 1.7 mg/dL (1.7-2.2) 03/20/18 05:30 Total Bilirubin 0.9 mg/dL (0.2-1.3) 03/20/18 05:30 AST 20 U/L (14-36) 03/20/18 05:30 ALT 23 U/L (7-56) 03/20/18 05:30 Alkaline Phosphatase 65 U/L (38-126) 03/20/18 05:30 Total Creatine Kinase 127 U/L (35-230) 03/19/18 14:35 Troponin I < 0.01 ng/mL 03/19/18 14:35 Total Protein 6.8 g/dL (5.8-8.3) 03/20/18 05:30 Albumin 3.7 g/dL (3.0-4.8) 03/20/18 05:30 Globulin 3.1 gm/dL 03/20/18 05:30 Albumin/Globulin Ratio 1.2 (1.1-1.8) 03/20/18 05:30 Triglycerides 164 mg/dL (35-160) H 03/19/18 14:35 Cholesterol 191 mg/dL (130-200) 03/19/18 14:35 LDL Cholesterol Direct 97 mg/dL (0-129) 03/19/18 14:35 HDL Cholesterol 54 mg/dL (29-60) 03/19/18 14:35 TSH 3rd Generation 2.97 mIU/mL (0.46-4.68) 03/19/18 14:35 Urine Color Yellow (YELLOW) 03/19/18 22:45 Urine Appearance Sl cloudy (CLEAR) 03/19/18 22:45 Urine pH 6.5 (4.7-8.0) 03/19/18 22:45 Ur Specific [place] 1.010 (1.005-1.035) 03/19/18 22:45 Urine Protein Negative mg/dL (<30 mg/dL) 03/19/18 22:45 Urine Glucose (UA) 500 mg/dL (NEGATIVE) H 03/19/18 22:45 Urine Ketones Negative mg/dL (NEGATIVE) 03/19/18 22:45 Urine Blood Small (NEGATIVE) H 03/19/18 22:45 Urine Nitrate Positive (NEGATIVE) H 03/19/18 22:45 Urine Bilirubin Negative (NEGATIVE) 03/19/18 22:45 Urine Urobilinogen 0.2 E.U./dL (<1 E.U./dL) 03/19/18 22:45 Ur Leukocyte Esterase Moderate [place]/uL (NEGATIVE) H 03/19/18 22:45 Urine RBC 0 - 2 /hpf (0-2) 03/19/18 22:45 Urine WBC 20 - 25 /hpf (0-6) 03/19/18 22:45 Ur Epithelial Cells 0 - 2 /hpf (0-5) 03/19/18 22:45 Urine Bacteria Many (NEG) 03/19/18 22:45 Attending/Attestation - Attestation I have personally seen and examined this patient.: Yes I have fully participated in the care of the patient.: Yes I have reviewed all pertinent clinical information, including history, physical exam and plan: Yes Notes (Text): I have seen and examined the patient at bedside. Follow up with Dr Chance within 3-5 days.
--- NOTE | 2018-03-20 22:29 | CON ---
DATE: 03/20/2018 HISTORY OF PRESENT ILLNESS: This is a 77-year-old female with past medical history of chronic AFib, hypertension, diabetes. Patient fell while walking in the room, hit her face on the floor. Did not lose consciousness. Patient was brought to hospital. CAT scan of the head was done, which was reported negative. Patient had bruised right periorbital area and no loss of consciousness and no fever. No nausea or vomiting. PAST MEDICAL HISTORY: As above. MEDICATIONS: Xanax, Pravachol, losartan, atenolol, glimepiride, metformin, nifedipine, and warfarin. Patient's Coumadin is on hold. SOCIAL HISTORY: She is a retired nurse. REVIEW OF SYSTEMS: A 10-point review of systems was negative. PHYSICAL EXAMINATION: HEENT: Normocephalic, bruised right periorbital region. No tongue bite. No urinary incontinence. NEUROLOGIC: Alert, awake, oriented x3. No aphasia. Cranial nerves II through XII were tested. Pupils reactive. EOM intact. Visual field full. No facial asymmetry. Tongue midline. Motor examination: Moves all the extremities equally. Tone normal. Deep tendon reflexes are 1+. Both plantars are downgoing. Cerebellar, gait deferred. IMPRESSION: Head trauma secondary to fall. CAT scan of the head, no bleed or infarct. Her PT is 30. We can hold the warfarin and continue present management. We will follow up. Devin Welch MD
--- NOTE | 2018-03-21 09:17 | CARD ---
APPROVED REPORT EXAM: Two-dimensional and M-mode echocardiogram with Doppler and color Doppler. Other Information Quality : GoodRhythm : INDICATION Syncope 2D DIMENSIONS Left Atrium (2D)3.3 (1.6-4.0cm)IVSd1.0 (0.7-1.1cm) LVDd4.4 (3.9-5.9cm)LVOT Diameter1.8 (1.8-2.4cm) PWd1.0 (0.7-1.1cm)LVDs3.1 (2.5-4.0cm) FS (%) 30.4 %LVEF (%)58.0 (>50%) M-Mode DIMENSIONS Aortic Root2.50 (2.2-3.7cm)Aortic Cusp Exc.0.70 (1.5-2.0cm) Aortic Valve AoV Peak [id number]/s Mitral Valve E/A ratio0.0 TDI E/Lateral E'0.0E/Medial E'0.0 Tricuspid Valve TR Peak [id number] [id number] Peak Gr.17mmHg [id number] LEFT VENTRICLE The left ventricle is normal size. There is normal left ventricular wall thickness. The left ventricular function is normal. The left ventricular ejection fraction is within the normal range. There is normal LV segmental wall motion. RIGHT VENTRICLE The right ventricle is normal size. ATRIA The left atrium size is normal. The right atrium size is normal. The interatrial septum is intact with no evidence for an atrial septal defect. AORTIC VALVE The aortic valve is mildly calcified. There is trace aortic regurgitation. MITRAL VALVE The mitral valve is mildly thickened but opens well. Mitral annular calcification is moderate. The subvalvular structures are calcified. Mitral regurgitation is mild. TRICUSPID VALVE The tricuspid valve is normal in structure. There is mild tricuspid regurgitation. PULMONIC VALVE The pulmonary valve is normal in structure. GREAT VESSELS The aortic root is normal in size. PERICARDIAL EFFUSION There is no pericardial effusion. <Conclusion> The left ventricle is normal size. There is normal left ventricular wall thickness. The left ventricular function is normal. Mitral regurgitation is mild. There is mild tricuspid regurgitation.
== END 2018-03-20 21:00 | disposition home or self-care (01) | DRG 90 ==
LOC: ED 13:08 → ERH 15:27 → 2RNO 17:55
PROVIDERS: ADMIT Hospitalist; ATTEND Hospitalist
PROC: 0CQ0XZZ Repair Upper Lip, External Approach (ICD-10-PCS; principal; 2018-03-19)
DX: S06.0X9A Concussion with loss of consciousness of unspecified duration, initial encounter (principal); I48.2 Chronic atrial fibrillation; I10 Essential (primary) hypertension; S00.11XA Contusion of right eyelid and periocular area, initial encounter; S01.511A Laceration without foreign body of lip, initial encounter; W01.0XXA Fall on same level from slipping, tripping and stumbling without subsequent striking against object, initial encounter; E11.9 Type 2 diabetes mellitus without complications; Z79.01 Long term (current) use of anticoagulants; Y93.01 Activity, walking, marching and hiking; Y92.531 Health care provider office as the place of occurrence of the external cause; Z96.651 Presence of right artificial knee joint; Z88.0 Allergy status to penicillin